=== PATIENT | male | born 1980 | race African-American/Black ===

== ENCOUNTER 2022-09-21 10:59 | Emergency (ER) | payer BC ==
[~2022-09-21] VITALS: Ht 193 cm; Wt 135.1 kg
[2022-09-21 11:24] VITALS: BP 140/87
[2022-09-21 11:31] VITALS: BP 142/99
[2022-09-21] MEDS ORDERED: NORVASC PO (12:55)
[2022-09-21 14:02] VITALS: BP 161/100
[2022-09-21 14:07] VITALS: BP 156/108
[2022-09-21 14:12] VITALS: BP 156/108
== END 2022-09-21 14:19 | disposition home or self-care (01) | DRG 730 ==
LOC: ED 10:59
DX: N48.30 Priapism, unspecified (principal)

== ENCOUNTER 2022-09-23 05:42 | Emergency (ER) | payer BC ==
[2022-09-23] VITALS (24 sets, daily range): BP systolic 103–185; BP diastolic 58–111
[~2022-09-23] VITALS: Ht 193 cm; Wt 135.0 kg
[~2022-09-23 05:42] MED LIST: NORVASC PO
[2022-09-23 06:21] LABS: BASO% 0.5 % (0-3); EOS% 0.5 % (0-8); HEMATOCRIT 46.5 % (39.0-50.0); HEMOGLOBIN 15.2 g/dl (14.0-18.0); IMMATURE GRANULOCYTES 0.1 % (0.0-5.0); LYMPH% 43.5 % (15-41); MEAN CELL VOLUME 86.9 fL CALC (80.0-100.0); MEAN CORPUSCULAR HGB 28.4 pG CALC (26.0-32.0); MEAN CORPUSCULAR HGB CONC 32.7 g/dL CAL (32.0-36.0); MONO% 10.4 % (2-13); NEUT# 3.55 thou/uL (1.82-7.42); RED BLOOD COUNT 5.35 mill/uL (4.70-6.10); RED CELL DISTRI WIDTH 12.3 % (11.5-15.5)
[2022-09-23 06:27] LABS: ALBUMIN 4.7 g/dL (3.2-5.0); ALKALINE PHOSPHATASE 90 u/l (38-126); ANION GAP 11 (6-22 (CALC)); BILIRUBIN, TOTAL 0.3 mg/dL (0.2-1.3); BUN 13 mg/dL (9-20); BUN/CREATININE RATIO 17 (12-20 (CALC)); CARBON DIOXIDE 22 mmol/l (22-30); CHLORIDE 110 mmol/l (95-108); CREATININE 0.8 mg/dL (0.7-1.3); GFR FOR AFR.AMER. > 60 ML/MIN (>=60 (CALC)); GFR OTHER RACES > 60 ML/MIN (>=60 (CALC)); POTASSIUM 3.6 mmol/l (3.5-5.1); SGOT/AST 33 u/l (17-59); SODIUM 140 mmol/l (137-146); TOTAL PROTEIN 8.3 g/dL (6.3-8.2)
[2022-09-23 06:57] LABS: TSH, 3RD GENERATION 2.62 uIU/mL (0.47 - 4.68)
== END 2022-09-23 12:15 | disposition home or self-care (01) | DRG 730 ==
LOC: ED 05:42
PROVIDERS: Family Medicine
DX: N48.30 Priapism, unspecified (principal)